=== PATIENT | male | born 1995 | race Caucasian/White ===

== ENCOUNTER 2017-10-21 01:59 | Emergency (ER) | payer BC ==
[~2017-10-21] VITALS: Ht 172.7 cm; Wt 61.4 kg
[2017-10-21 02:00] VITALS: TEMP 36.6; Ht 172.7 cm; Wt 61.4 kg
[2017-10-21 02:08] VITALS: O2SAT 98
[2017-10-21 02:49] LABS: CALCIUM 8.7 mg/dl (8.5-10.1); CREATININE 1.07 mg/dl (0.60-1.40); POTASSIUM 3.5 mmol/L (3.5-5.1)
--- NOTE | 2017-10-21 05:55 | EMERGENCY ROOM VISIT NOTE ---
History Report prepared by Lele: Gael Layne Under the Supervision of: Dr. Jennie Vega D.O. First contact with patient: 02:01 Chief Complaint: ALCOHOL OVERDOSE Stated Complaint: ALCOHOL Nursing Triage Summary: Pt brought in by EMS. Pt was found by police staggering behind [address]. Pt did not have a phone to call a sober friend. No trauma noted. History of Present Illness The patient is a 21 year old male who presents to the Emergency Room with complaints of persistent general alcohol intoxication [employer]. Per EMS, the patient was seen by police at the [facility] [place]. The patient denies any injuries or falls. He denies any underlying medical problems. He denies drinking any alcohol. He denies any illicit drug use. He states that he was hanging out alone. He is from [place]. HPI is limited secondary to alcohol intoxication. Source of History: patient, EMS History Limited By: intoxication (alcohol) Onset: [employer] Position: other (general) Quality: other (alcohol intoxication) Timing: other (persistent) Note: Denies any injuries or falls. Review of Systems ROS is limited secondary to alcohol intoxication. Past Medical & Surgical No other pertinent past personal medical history obtained. Family History No pertinent family history Social History Smoking Status: Never Smoker Alcohol Use: heavy Marital Status: single Housing Status: lives with roommate Occupation Status: [employer] student Current/Historical Medications Unable to Obtain Active Prescriptions or Reported Meds Physical Exam Vital Signs Date Time Temp Pulse Resp B/P (MAP) Pulse Ox O2 Delivery O2 Flow Rate FiO2 10/21/17 06:12 74 10/21/17 06:05 75 16 95/49 100 Room Air 10/21/17 05:06 74 16 107/54 96 Room Air 10/21/17 04:15 79 16 112/56 95 Room Air 10/21/17 03:25 94 20 128/90 96 Room Air 10/21/17 02:30 111 10/21/17 02:08 98 Room Air 10/21/17 02:00 36.6 110 20 130/94 98 Room Air Physical Exam General: Smells of ETOH. HEENT: Head - normocephalic and atraumatic Pupils are 4 mm, round, and sluggishly reactive to light. Extraocular eye muscles are intact, and sclera are anicteric. Nose - moist nasal mucosa without discharge. Mouth - moist buccal mucosa. Oropharynx is nonerythematous and there is no tonsillar exudate or edema noted. Neck: Supple; no JVD, nuchal rigidity, cervical lymphadenopathy. Heart: Tachycardic rate and regular rhythm. There is a normal S1 and S2 with no murmurs, clicks, or gallops appreciated. Lungs: Clear to auscultation bilaterally with no wheezes, rales, or rhonchi. Abdomen: Soft, completely nontender, nondistended, with good bowel sounds. There are no palpable pulsatile masses or hepatosplenomegaly. There is no guarding, rigidity, or rebound noted. Extremities: No evidence of cyanosis, clubbing, or edema. There are easily palpable peripheral pulses. Skin: warm and dry with good turgor and no rashes. Medical Decision & Procedures Laboratory Results 10/21/17 02:04 Test 10/21/17 02:04 Anion Gap 6.0 mmol/L (3-11) Est Creatinine Clear Calc Drug Dose 96.4 ml/min Estimated GFR () 116.0 Estimated GFR (Non- 100.1 BUN/Creatinine Ratio 11.1 (10-20) Calcium Level 8.7 mg/dl (8.5-10.1) Ethyl Alcohol mg/dL 273.0 mg/dl (0-3) .Laboratory results per my review. ED Course 0203: Past medical records reviewed. The patient was evaluated in room B12B. A complete history and physical exam was performed. The patient was placed in the prone position to avoid aspiration. They were observed on the case monitor and pulse oximeter. Labs were drawn as above 0302: I reassessed the patient at this time. I continued to hear him scream out. He is no longer in the prone position. He is sitting upright. The patient is aggravated from his blood pressure cuff. He is angry regarding the cost of his hospitalization and the fact that we will not close the sliding door. 0429: I reassessed the patient at this time. He is sound asleep. His vitals are stable. 0558: I reassessed the patient at this time. He is resting comfortably. He is hemodynamically stable. The patient does not have a phone to contact any sober friends. He will be discharged around 9 AM once his alcohol level has come down. Nursing staff will instruct him on hazards of such excessive alcohol use. Medical Decision The patient is a 21 year old male who presents to the ED with alcohol intoxication. Differential diagnosis includes alcohol overdose, drug intoxication, head injury, and hypoglycemia. Lab results showed: Alcohol 273. Normal renal function. Normal Glucose. The patient was brought to the emergency department after consuming too much alcohol. There were no obvious signs of trauma or complaints of pain. They were observed closely throughout the night and remained stable while here in the ER. The patient was allowed time to sober up prior to discharge. Nurses will have a conversation with the patient about the hazards of such excessive alcohol use. The patient has no outward signs of trauma. His vital signs of remained stable. Medication Reconcilliation Current Medication List: was personally reviewed by me Blood Pressure Screening Patient's blood pressure: Normal blood pressure Impression Primary Impression: Alcohol overdose Scribe Attestation The scribe's documentation has been prepared under my direction and personally reviewed by me in its entirety. I confirm that the note above accurately reflects all work, treatment, procedures, and medical decision making performed by me. Departure Information Dispostion Still a Patient Prescriptions Unable to Obtain Active Prescriptions or Reported Meds Forms HOME CARE DOCUMENTATION FORM, IMPORTANT VISIT INFORMATION Patient Instructions My [facility], [facility]: [employer] Students and Alcohol Related Visits, ED Overdose Alcohol Additional Instructions Avoid such excessive alcohol use in the future. Tylenol 650 mg every 6 hours for headache. Drink plenty of fluids and take a bland diet today. Return to the emergency department for worsening symptoms or any medical concerns. Problem Qualifiers Primary Impression: Alcohol overdose Encounter type: initial encounter Injury intent: accidental or unintentional Qualified Codes: T51.91XA - Toxic effect of unspecified alcohol , accidental (unintentional), initial encounter
[2017-10-21 08:47] VITALS: BP 101/56; PULSE 78; O2SAT 100
== END 2017-10-21 08:55 | disposition home or self-care (01) ==
LOC: EDBD 01:59 → C.EDB 02:02
DX: T51.91XA Toxic effect of unspecified alcohol, accidental (unintentional), initial encounter (principal)